=== PATIENT | male | born 1990 | race Hispanic/Latino ===

== ENCOUNTER 2018-09-17 00:28 | Emergency (ER) | payer OTHER ==
[2018-09-17 01:08] LABS: EOSINOPHILS % (AUTO) 17.8 % (0.0-8.0); LYMPHOCYTES % (AUTO) 25.5 % (21.0-51.0); MEAN CORPUSCULAR HEMOGLOBIN 30.1 pg (27.0-33.0); MEAN CORPUSCULAR VOLUME 88.4 fL (79-99); MONOCYTES % (AUTO) 10.2 % (3.0-13.0); NEUTROPHILS % (AUTO) 45.5 % (40.0-77.0); NUCLEATED RED BLOOD CELLS 0.2 % (0.0-0.19); PLATELET COUNT (AUTO) 278 K/uL (130-400); RED BLOOD CELL COUNT(AUTO) 5.09 MIL/uL (4.50-6.20); WHITE BLOOD COUNT (AUTO) 10.6 K/uL (4.8-10.8)
[2018-09-17 01:18] LABS: POTASSIUM 3.4 mmol/L (3.5-5.1)
[2018-09-17 01:22] LABS: ALBUMIN 3.6 g/dL (3.5-5.0); BILIRUBIN,DIRECT 0.1 mg/dL (0.0-0.3); BILIRUBIN,TOTAL 0.5 mg/dL (0.2-1.0); TOTAL PROTEIN, SERUM 8.9 g/dL (6.0-8.3)
[2018-09-17] MEDS ORDERED: DIPHENHYDRAMINE HCL 25 MG CAPSULE ONE (01:34)
== END 2018-09-17 01:37 | disposition home or self-care (01) ==
LOC: EDH 00:28
DX: R05 Cough (principal)
CPT/HCPCS: 36415; 71046; 80048; 80076; 85025; 99284; Q0163